=== PATIENT | male | born 1975 | race African-American/Black ===

== ENCOUNTER 2020-06-13 13:34 | Emergency (ER) | payer OTHER, SELFPAY ==
[2020-06-13 13:43] VITALS: BP 136/88; PULSE 99; RESP 16; TEMP 36.6; O2SAT 100
--- NOTE | 2020-06-13 13:51 | ED.SKABFB ---
HPI - Skin/Abscess/Foreign Bdy General Chief complaint: Skin/Abscess/Foreign Body Stated complaint: insect bite Related Data Home Medications Medication Instructions Recorded Confirmed Combivent Respimat 06/13/20 Symbicort 06/13/20 amlodipine 06/13/20 loratadine 06/13/20 trazodone 06/13/20 Allergies Allergy/AdvReac Type Severity Reaction Status Date / Time bee venom protein (honey bee) Allergy Unknown Verified 06/13/20 13:59 Course Vital Signs Vital signs: Vital Signs Temperature 97.8 F 06/13/20 13:43 Pulse Rate 99 06/13/20 13:43 Respiratory Rate 16 06/13/20 13:43 Blood Pressure 136/88 06/13/20 13:43 Pulse Oximetry 100 06/13/20 13:43 Temperature 97.8 F 06/13/20 13:43 Pulse Rate 99 06/13/20 13:43 Respiratory Rate 16 06/13/20 13:43 Blood Pressure 136/88 06/13/20 13:43 Pulse Oximetry 100 06/13/20 13:43 Discharge Plan Discharge Prescriptions: No Action Combivent Respimat RF: 0 Symbicort RF: 0 amlodipine RF: 0 loratadine RF: 0 trazodone RF: 0
[2020-06-13] MEDS: diphenhydrAMINE HCl CAP 25 MG CAPSULE 50 MG PO (14:05)
--- NOTE | 2020-06-13 14:22 | ED.ALLEREA ---
HPI - Allergic Reaction General Chief complaint: Skin/Abscess/Foreign Body Stated complaint: insect bite Time Seen by Provider: 06/13/20 14:10 Source: patient and RN notes reviewed Mode of arrival: ambulatory Limitations: no limitations History of Present Illness HPI narrative: 44-year-old male with a history of asthma presents with concern for a wasp sting to his right cheek. 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 Reports the sting occurred approximately 1 hour ago. Denies any intervention for the sting. Denies difficulty breathing, difficulty swallowing, swollen lips, swollen tongue. Reports swollen right face MD complaint: allergic reaction Related Data Home Medications Medication Instructions Recorded Confirmed Combivent Respimat 06/13/20 Symbicort 06/13/20 amlodipine 06/13/20 loratadine 06/13/20 trazodone 06/13/20 Allergies Allergy/AdvReac Type Severity Reaction Status Date / Time bee venom protein (honey bee) Allergy Unknown Verified 06/13/20 13:59 Review of Systems Review of Systems: Narrative: CONSTITUTIONAL: Denies malaise, chills, sweats, or fever. EYES: Denies visual changes ENT: Denies difficulty swallowing, swollen lips, swollen tongue CARDIOVASCULAR: Denies chest pain, palpitations, or edema. RESPIRATORY: Denies cough or dyspnea. GASTROINTESTINAL: Denies abdominal pain, nausea, vomiting, diarrhea SKIN: Reports swollen right cheek All systems reviewed & are unremarkable except as noted in HPI and below PMFSH Social History Social History Gender identity (if verbalized by the patient): Male Comments At time of signature, agree with nursing past medical, surgical, social and family history. There is no relevant family history pertinent to the presenting complaint Exam Narrative: Exam Narrative: GENERAL: Well-appearing, well-nourished, and in no acute distress. HEAD: Normocephalic, atraumatic. EYES: PERRLA, conjunctivae clear ENT: Nares clear, turbinates pink, no rhinorrhea or epistaxis. Mucous membranes moist. TM pearly tyler with sharp light reflex bilaterally; no tragal tenderness. Oropharynx without edema, erythema or lesions. Tonsils not enlarged and without exudate. NECK: Supple. No lymphadenopathy. CHEST: No respiratory distress. Scattered inspiratory wheeze noted. No bony deformities, no asymmetry. Speaks in full sentences. HEART: Regular rate and rhythm. No murmur heard. Normal peripheral pulses. SKIN: Warm, dry, no rash. Right facial swelling noted NEURO: Alert and oriented x3. No focal deficits. PSYCH: Normal mood and affect Course Course Emergency Course: Patient is aware of diagnosis, understands and agrees to treatment plan. Anticipatory guidance given. Patient agrees to follow-up as directed and is aware of reasons to seek care at the emergency department. Portions of this record may have been created with voice recognition software Reevaluation(s) Reevaluation #1: Diphenhydramine, 50 mg given. Solu-Medrol 125 mg IM ordered. Patient using his personal albuterol inhaler. Reevaluation #2: Patient's lungs are clear, facial edema visibly reduced. Stinger removed with tweezers from right cheek. Date: 06/13/20 Time: 15:05 Vital Signs Vital signs: Vital Signs Temperature 97.8 F 06/13/20 13:43 Pulse Rate 99 06/13/20 13:43 Respiratory Rate 16 06/13/20 13:43 Blood Pressure 136/88 06/13/20 13:43 Pulse Oximetry 100 06/13/20 13:43 Temperature 97.8 F 06/13/20 13:43 Pulse Rate 99 06/13/20 13:43 Respiratory Rate 16 06/13/20 13:43 Blood Pressure 136/88 06/13/20 13:43 Pulse Oximetry 100 06/13/20 13:43 Reviewed. Patient has history of hypertension MDM - Allergic Reaction MDM Narrative Medical decision making narrative: No soft palate or uvula edema, no tongue or lip edema or other mucosal involvement, no respiratory compromise, no stridor
[2020-06-13] MEDS: methylPREDNISolone SOD SUCC 125 MG VIAL IM (14:26)
== END 2020-06-13 15:21 | disposition home or self-care (01) ==
PROVIDERS: Emergency Provider Nurse Practitioner
DX: T63.461A Toxic effect of venom of wasps, accidental (unintentional), initial encounter (principal); I10 Essential (primary) hypertension; J45.909 Unspecified asthma, uncomplicated
CPT/HCPCS: 96372; 99213; A9270; G0463; J2930